=== PATIENT | female | born 1970 | race Caucasian/White ===

== ENCOUNTER 2021-03-28 16:32 | Emergency (ER) | payer OTHER | END 2021-03-28 17:25 | disposition home or self-care (01) | LOC: NAV ERS 16:32 | DX: S63.602A Unspecified sprain of left thumb, initial encounter (principal); S46.911A Strain of unspecified muscle, fascia and tendon at shoulder and upper arm level, right arm, initial encounter; S80.01XA Contusion of right knee, initial encounter; I10 Essential (primary) hypertension; W17.89XA Other fall from one level to another, initial encounter ==

== ENCOUNTER 2021-05-11 18:53 | Emergency (ER) | payer OTHER ==
[2021-05-11] MEDS ORDERED: methylPREDNISolone Sod Succ/PF 125 MG/2 ML VIAL ONE (19:34)
== END 2021-05-11 19:51 | disposition home or self-care (01) ==
LOC: NAV ERS 18:53
DX: L50.0 Allergic urticaria (principal); I10 Essential (primary) hypertension; E21.3 Hyperparathyroidism, unspecified
CPT/HCPCS: 96372; 99283; J2930

== ENCOUNTER 2021-08-18 11:52 | Outpatient (CLI) | payer OTHER | END 2021-08-18 11:53 | disposition home or self-care (01) | LOC: NAV LAB 11:52 | PROVIDERS: ATTEND Pathology Anatomic Pathology & Clinical Pathology | DX: Z00.00 Encounter for general adult medical examination without abnormal findings (principal) | CPT/HCPCS: 82150 ==

== ENCOUNTER 2021-09-07 12:32 | Emergency (ER) | payer OTHER ==
[~2021-09-07 12:32] MED LIST: Iopamidol 370 76% 100 ML VIAL ONE
[2021-09-07] MEDS ORDERED: Pantoprazole 40 MG VIAL ONE (13:01)
[2021-09-07] MEDS ORDERED: Ondansetron PF 4 MG/2 ML Vial ONE (13:01)
[2021-09-07 13:28] LABS: #Basophils 0.1 thou/uL (0.0-0.2); #Eosinphils 0.2 thou/uL (0.0-0.7); #Lymphocytes 2.5 thou/uL (1.20-3.40); #Monocytes 0.4 thou/uL (0.11-0.59); #Neutrophils 4.3 thou/uL (1.40-6.50); %Basophils 0.7 % (0.0-1.0); %Eosinophils 2.5 % (0.0-10.0); %Lymphocytes 33.1 % (21.0-51.0); %Monocytes 5.9 % (0.0-10.0); %Neutrophils 57.7 % (42.0-75.0); Hemoglobin 15.9 g/dL (12.0-16.0); Mean Corpuscular HGB CONC 33.1 g/dL (32.0-36.0); Mean Corpuscular Hemoglobin 30.2 pg (27.0-31.0); Mean Corpuscular Volume 91.4 fL (78.0-98.0); Mean Platelet Volume 6.8 fL (7.4-10.4); Platelet Count 294 thou/uL (130-400); RBC Distribution Width 11.8 % (11.5-14.5); Red Blood Cell (RBC) Count 5.24 mill/uL (4.20-5.40); White Blood Cell (WBC) Count 7.5 thou/uL (4.8-10.8)
[2021-09-07 13:30] LABS: Bilirubin Small (Negative); Blood, Urine Negative (Negative); Glucose, Urine (Dipstick) Negative (Negative); Ketone, Urine Negative (Negative); Leukocyte Trace (Negative); Nitrite Negative (Negative); Protein, Urine (Dipstick) 100 mg/dL (Neg-Trace); Urobilinogen 0.2 mg/dL (Less than 2)
[2021-09-07 13:32] LABS: Clarity SL HAZY (Clear); Specific Gravity, Urine 1.028 (1.002-1.036)
[2021-09-07] MEDS ORDERED: Morphine 4 MG/ML VIAL ONE (13:32)
[2021-09-07] MEDS ORDERED: Promethazine HCl 25 MG/ML VIAL ONE (13:32)
[2021-09-07] MEDS ORDERED: Sodium Chloride 0.9% 100 ML ONE (13:33)
[2021-09-07 13:42] LABS: Bacteria/HPF Rare-Few HPF (None Seen); Squamous Epithelial 0-3 HPF (0-3); Trichomonas/HPF 1+ HPF (None Seen); WBC/HPF 0-3 HPF (0-3)
[2021-09-07 13:43] LABS: ALT (SGPT) 34 U/L (8-55); AST (SGOT) 19 U/L (5-34); Albumin 4.1 g/dL (3.5-5.0); Alkaline Phosphatase 91 U/L (40-110); Anion Gap 13 mmol/L (10-20); BUN (Urea Nitrogen) 13 mg/dL (9.8-20.1); Bilirubin, Total 1.6 mg/dL (0.2-1.2); Calc. Creatinine Clearance 0 mL/min (70-130); Calcium 9.5 mg/dL (7.8-10.44); Calcium Oxalate Crystals 2+ HPF (None Seen); Carbon Dioxide 29 mmol/L (22-29); Chloride 104 mmol/L (98-107); Globulin 3.3 g/dL (2.4-3.5); Glucose 107 mg/dL (70-105); Lipase 15 U/L (8-78); Mucous/LPF 1+ LPF (<2+); Potassium 3.5 mmol/L (3.5-5.1); Protein, Total 7.4 g/dL (6.0-8.3); Sodium 142 mmol/L (136-145)
[2021-09-07] MEDS ORDERED: Sodium Chloride 0.9% 1,000 ML ONE (14:04)
== END 2021-09-07 15:03 | disposition home or self-care (01) ==
LOC: NAV ERS 12:32
DX: R11.2 Nausea with vomiting, unspecified (principal); R10.12 Left upper quadrant pain; I10 Essential (primary) hypertension; E21.3 Hyperparathyroidism, unspecified; J42 Unspecified chronic bronchitis; Z79.899 Other long term (current) drug therapy
CPT/HCPCS: 74177; 80053; 81003; 81015; 83690; 85025; 96374; 96375; C9113; J2270; J2405; J2550; J7050; Q9967

== ENCOUNTER 2022-02-14 06:37 | Emergency (ER) | payer OTHER | END 2022-02-14 07:27 | disposition home or self-care (01) | LOC: NAV ERS 06:37 | DX: J06.9 Acute upper respiratory infection, unspecified (principal); E21.3 Hyperparathyroidism, unspecified; I10 Essential (primary) hypertension; J42 Unspecified chronic bronchitis; Z79.899 Other long term (current) drug therapy | CPT/HCPCS: 99283 ==

== ENCOUNTER 2022-12-21 13:10 | Emergency (ER) | payer OTHER ==
[2022-12-21] MEDS ORDERED: Morphine 4 MG/ML VIAL ONE (13:55)
[2022-12-21] MEDS ORDERED: Cyclobenzaprine 10 MG TAB ONE (15:46)
== END 2022-12-21 16:02 | disposition home or self-care (01) ==
LOC: NAV ERS 13:10
DX: S83.411A Sprain of medial collateral ligament of right knee, initial encounter (principal); M17.11 Unilateral primary osteoarthritis, right knee; E21.3 Hyperparathyroidism, unspecified; X50.1XXA Overexertion from prolonged static or awkward postures, initial encounter
CPT/HCPCS: 96372; J2270

== ENCOUNTER 2023-08-28 11:35 | Emergency (ER) | payer OTHER ==
[2023-08-28 13:22] LABS: Anion Gap 13 mmol/L (10-20); BUN (Urea Nitrogen) 11 mg/dL (9.8-20.1); Calc. Creatinine Clearance 0 mL/min (70-130); Calcium 8.8 mg/dL (7.8-10.44); Carbon Dioxide 29 mmol/L (22-29); Chloride 104 mmol/L (98-107); Estimated GFR 94; Glucose 100 mg/dL (70-105); Potassium 2.9 mmol/L (3.5-5.1); Sodium 143 mmol/L (136-145)
[2023-08-28] MEDS ORDERED: Potassium Chloride 20 MEQ TAB ONE (13:51)
== END 2023-08-28 14:29 | disposition home or self-care (01) ==
LOC: NAV ERS 11:35
DX: J02.9 Acute pharyngitis, unspecified (principal); F41.9 Anxiety disorder, unspecified; R20.2 Paresthesia of skin; Z20.822 Contact with and (suspected) exposure to COVID-19
CPT/HCPCS: 80048; 87635; 87804; 99283

== ENCOUNTER 2024-01-31 19:03 | Emergency (ER) | payer OTHER ==
[2024-01-31 19:54] LABS: #Basophils 0.1 thou/uL (0.0-0.2); #Eosinphils 0.2 thou/uL (0.0-0.7); #Lymphocytes 3.8 thou/uL (1.20-3.40); #Monocytes 0.7 thou/uL (0.11-0.59); #Neutrophils 5.2 thou/uL (1.40-6.50); %Basophils 0.8 % (0.0-1.0); %Eosinophils 2.4 % (0.0-10.0); %Monocytes 6.7 % (0.0-10.0); %Neutrophils 52.2 % (42.0-75.0); Hematocrit 43.9 % (36.0-47.0); Hemoglobin 14.4 g/dL (12.0-16.0); Mean Corpuscular HGB CONC 32.8 g/dL (32.0-36.0); Mean Corpuscular Hemoglobin 29.5 pg (27.0-31.0); Mean Corpuscular Volume 89.9 fl (78.0-98.0); Mean Platelet Volume 6.6 fL (7.4-10.4); Platelet Count 275 10x3/uL (130-400); RBC Distribution Width 11.9 % (11.5-14.5); Red Blood Cell (RBC) Count 4.89 mill/uL (4.20-5.40)
[2024-01-31] MEDS ORDERED: Ketorolac Tromethamine 30 MG (1 mL) VIAL ONE (19:57)
[2024-01-31] MEDS ORDERED: Labetalol HCl 100 MG/20 ML VIAL ONE (19:58)
[2024-01-31 20:03] LABS: Bilirubin Negative (Negative); Blood, Urine Large (Negative); Clarity Hazy (Clear); Glucose, Urine (Dipstick) Negative (Negative); Ketone, Urine Negative (Negative); Leukocyte Moderate (Negative); Nitrite Negative (Negative); Protein, Urine (Dipstick) 30 mg/dL (Neg-Trace); Urobilinogen 0.2 mg/dL (Less than 2); pH, Urine 5.5 (5.0-9.0)
[2024-01-31 20:12] LABS: CAUTI Indications for Culture Dysuria,urgency,freq; Specific Gravity, Urine 1.027 (1.002-1.036)
[2024-01-31 20:13] LABS: Bacteria/HPF 1+ HPF (None Seen)
[2024-01-31 20:14] LABS: ALT (SGPT) 17 U/L (8-55); AST (SGOT) 13 U/L (5-34); Albumin 4.3 g/dL (3.5-5.0); Alkaline Phosphatase 89 U/L (40-110); Anion Gap 14 mmol/L (10-20); BUN (Urea Nitrogen) 27 mg/dL (9.8-20.1); Bilirubin, Total 1.1 mg/dL (0.2-1.2); Calc. Creatinine Clearance 0 mL/min (70-130); Calcium 9.7 mg/dL (7.8-10.44); Carbon Dioxide 28 mmol/L (22-29); Chloride 106 mmol/L (98-107); Estimated GFR 63; Globulin 2.9 g/dL (2.4-3.5); Glucose 91 mg/dL (70-105); Lipase 30 U/L (8-78); Potassium 3.7 mmol/L (3.5-5.1); Protein, Total 7.2 g/dL (6.0-8.3); Sodium 144 mmol/L (136-145); Urine Culture Reflex No No
== END 2024-01-31 21:17 | disposition home or self-care (01) ==
LOC: NAV ERS 19:03
DX: K63.5 Polyp of colon (principal); I10 Essential (primary) hypertension
CPT/HCPCS: 74177; 80053; 81001; 83690; 85025; 96374; 96375; J1885; Q9967

== ENCOUNTER 2024-02-29 15:21 | Outpatient (CLI) | payer OTHER ==
[2024-02-29 16:27] LABS: Bilirubin Negative (Negative); Blood, Urine Trace (Negative); Clarity Hazy (Clear); Glucose, Urine (Dipstick) Negative (Negative); Ketone, Urine Negative (Negative); Leukocyte Small (Negative); Nitrite Negative (Negative); Protein, Urine (Dipstick) 30 mg/dL (Neg-Trace); Specific Gravity, Urine 1.031 (1.002-1.036); Urobilinogen 0.2 mg/dL (Less than 2); pH, Urine 5.5 (5.0-9.0)
== END 2024-02-29 15:22 | disposition home or self-care (01) ==
LOC: NAV LAB 15:21
PROVIDERS: ATTEND Pathology Anatomic Pathology & Clinical Pathology
DX: Z00.00 Encounter for general adult medical examination without abnormal findings (principal)
CPT/HCPCS: 81003

== ENCOUNTER 2024-07-02 09:49 | Emergency (ER) | payer OTHER ==
[2024-07-02 10:51] LABS: #Basophils 0.1 thou/uL (0.0-0.2); #Eosinophils 0.1 thou/uL (0.0-0.7); #Lymphocytes 2.6 thou/uL (1.20-3.40); #Monocytes 0.5 thou/uL (0.11-0.59); #Neutrophils 4.1 thou/uL (1.40-6.50); %Basophils 0.8 % (0.0-1.0); %Lymphocytes 35.1 % (21.0-51.0); %Monocytes 7.2 % (0.0-10.0); Hemoglobin 14.2 g/dL (12.0-16.0); Mean Corpuscular HGB CONC 34.5 g/dL (32.0-36.0); Mean Corpuscular Hemoglobin 30.1 pg (27.0-31.0); Mean Corpuscular Volume 87.3 fl (78.0-98.0); Mean Platelet Volume 6.8 fL (7.4-10.4); Platelet Count 336 10x3/uL (130-400); RBC Distribution Width 11.1 % (11.5-14.5); White Blood Cell (WBC) Count 7.3 10x3/uL (4.8-10.8)
[2024-07-02 11:08] LABS: Troponin I 0.013 ng/mL (< 0.028)
[2024-07-02 11:11] LABS: ALT (SGPT) 28 U/L (8-55); AST (SGOT) 19 U/L (5-34); Albumin 3.9 g/dL (3.5-5.0); Alkaline Phosphatase 74 U/L (40-110); Anion Gap 17 mmol/L (10-20); BUN (Urea Nitrogen) 22 mg/dL (9.8-20.1); Bilirubin, Total 2.1 mg/dL (0.2-1.2); Calc. Creatinine Clearance 0 mL/min (70-130); Calcium 9.1 mg/dL (7.8-10.44); Carbon Dioxide 26 mmol/L (22-29); Chloride 103 mmol/L (98-107); Estimated GFR 57; Globulin 2.5 g/dL (2.4-3.5); Glucose 110 mg/dL (70-105); Magnesium 1.8 mg/dL (1.6-2.6); Potassium 2.9 mmol/L (3.5-5.1); Protein, Total 6.4 g/dL (6.0-8.3); Sodium 143 mmol/L (136-145)
[2024-07-02 11:23] LABS: SARS-CoV-2 E Target Negative; SARS-CoV-2 N2 Target Negative; SARS-CoV-2 NAA Rapid Test Not Detected (NotDetected); SARS-CoV-2 RdRP gene Negative
[2024-07-02] MEDS ORDERED: Potassium Bicarbonate/Cit Ac 25 MEQ TAB ONE (12:09)
[2024-07-02 12:38] LABS: Bilirubin Small (Negative); Blood, Urine Negative (Negative); Clarity Clear (Clear); Glucose, Urine (Dipstick) Negative (Negative); Ketone, Urine Trace mg/dL (Negative); Leukocyte Small (Negative); Nitrite Negative (Negative); Protein, Urine (Dipstick) 30 mg/dL (Neg-Trace); Urobilinogen 0.2 mg/dL (Less than 2)
[2024-07-02 12:54] LABS: Bacteria/HPF 3+ HPF (None Seen); CAUTI Indications for Culture Fever or rigors; Epithelial Cast 0-3 LPF (None Seen); RBC/HPF 0-3 HPF (0-3); Renal Epithelial 0-3 HPF (None Seen); Transitional Epithelial 0-3 HPF (None Seen)
[2024-07-02 12:55] LABS: Urine Culture Reflex No No
== END 2024-07-02 13:30 | disposition home or self-care (01) ==
LOC: NAV ERS 09:49
DX: N39.0 Urinary tract infection, site not specified (principal); E87.6 Hypokalemia; R53.1 Weakness; I10 Essential (primary) hypertension
CPT/HCPCS: 36415; 80053; 81001; 83735; 84484; 85025; 93005; 94760; 99285; U0002

== ENCOUNTER 2024-09-28 06:11 | Emergency (ER) | payer OTHER | END 2024-09-28 06:22 | disposition left against medical advice (07) | LOC: NAV ERS 06:11 | DX: Z53.21 Procedure and treatment not carried out due to patient leaving prior to being seen by health care provider (principal) ==

== ENCOUNTER 2024-10-23 03:28 | Emergency (ER) | payer OTHER ==
[2024-10-23] MEDS ORDERED: Sodium Chloride 0.9% 1,000 ML ONE ×3 (03:37→08:04)
[2024-10-23] MEDS ORDERED: Ondansetron PF 4 MG/2 ML Vial ONE (03:37)
[2024-10-23] MEDS ORDERED: Pantoprazole 40 MG VIAL ONE (04:03)
[2024-10-23] MEDS ORDERED: Morphine 2 MG/ML VIAL ONE (04:03)
[2024-10-23 04:05] LABS: Hematocrit 44.7 % (36.0-47.0); Hemoglobin 14.7 g/dL (12.0-16.0); Mean Corpuscular Hemoglobin 28.5 pg (27.0-31.0); Mean Corpuscular Volume 86.5 fl (78.0-98.0); Mean Platelet Volume 6.5 fL (7.4-10.4); Platelet Count 260 10x3/uL (130-400); RBC Distribution Width 11.1 % (11.5-14.5); Red Blood Cell (RBC) Count 5.17 mill/uL (4.20-5.40); White Blood Cell (WBC) Count 8.6 10x3/uL (4.8-10.8)
[2024-10-23 04:14] LABS: ALT (SGPT) 21 U/L (8-55); AST (SGOT) 14 U/L (5-34); Albumin 3.9 g/dL (3.5-5.0); Alkaline Phosphatase 83 U/L (40-110); Anion Gap 18 mmol/L (10-20); BUN (Urea Nitrogen) 20 mg/dL (9.8-20.1); Bilirubin, Total 1.9 mg/dL (0.2-1.2); Calc. Creatinine Clearance 0 mL/min (70-130); Carbon Dioxide 20 mmol/L (22-29); Chloride 106 mmol/L (98-107); Estimated GFR 84; Globulin 3.4 g/dL (2.4-3.5); Glucose 137 mg/dL (70-105); Lipase 16 U/L (8-78); Potassium 3.6 mmol/L (3.5-5.1); Protein, Total 7.3 g/dL (6.0-8.3); Sodium 140 mmol/L (136-145); Troponin I Less than 0.010 ng/mL (< 0.028)
[2024-10-23 04:21] LABS: Band 5 % (5-11); Eosinophils 1 % (0-10); Lymphocytes 9 % (21-51); MDiff Complete? YES; Monocytes 5 % (0-10); Neutrophil 80 % (42-75); Platelet Adequacy Comment Appears Adequate; Toxic Granulation SLIGHT; Vacuoles SLIGHT
[2024-10-23] MEDS ORDERED: Morphine 4 MG/ML VIAL ONE (04:45)
[2024-10-23] MEDS ORDERED: Dicyclomine 20 MG/2 ML VIAL ONE (04:58)
[2024-10-23 05:03] LABS: Bilirubin Small (Negative); Blood, Urine Trace (Negative); Glucose, Urine (Dipstick) Negative (Negative); Ketone, Urine Trace mg/dL (Negative); Leukocyte Large (Negative); Nitrite Negative (Negative); Protein, Urine (Dipstick) 30 mg/dL (Neg-Trace); Specific Gravity, Urine 1.015 (1.005-1.030); Urobilinogen 0.2 mg/dL (Less than 2); pH, Urine 6.5 (5.0-9.0)
[2024-10-23 05:10] LABS: CAUTI Indications for Culture Dysuria,urgency,freq; Clarity Slightly Cloudy (Clear)
[2024-10-23 05:11] LABS: Bacteria/HPF Rare-Few HPF (None Seen); Mucous/LPF 2+ LPF (<2+)
[2024-10-23 05:12] LABS: Urine Culture Reflex Yes Yes
[2024-10-23] MEDS ORDERED: Losartan 50 MG TAB ONE (08:04)
[2024-10-23] MEDS ORDERED: Promethazine HCl 25 MG/ML VIAL ONE (08:04)
== END 2024-10-23 11:44 | disposition home or self-care (01) ==
LOC: EEVIPCON 03:28 → NAV ERS 03:28
DX: K52.9 Noninfective gastroenteritis and colitis, unspecified (principal); I10 Essential (primary) hypertension; Z79.899 Other long term (current) drug therapy; E86.0 Dehydration
CPT/HCPCS: 71045; 71275; 74177; 80053; 81001; 83690; 83880; 84484; 85025; 85379; 87086; 93005; 96361; 96372; 96374; 96375; 96376; J2270; J2272; J2405; J2470; J2550; J7030

== ENCOUNTER 2025-01-11 07:56 | Emergency (ER) | payer OTHER ==
[2025-01-11] MEDS ORDERED: Losartan 50 MG TAB ONE (08:19)
[2025-01-11] MEDS ORDERED: Atenolol 25 MG TAB ONE (08:19)
[2025-01-11] MEDS ORDERED: Carvedilol 6.25 MG TAB ONE (08:19)
[2025-01-11] MEDS ORDERED: Pantoprazole 40 MG DR.TAB ONE (08:19)
[2025-01-11] MEDS ORDERED: Sucralfate 1 GM/10 ML UDCUP ONE (08:47)
== END 2025-01-11 09:06 | disposition home or self-care (01) ==
LOC: NAV ERS 07:56
DX: J18.9 Pneumonia, unspecified organism (principal); I10 Essential (primary) hypertension; Z79.899 Other long term (current) drug therapy
CPT/HCPCS: 71046; 87070; 87077; 87205

== ENCOUNTER 2025-07-30 09:20 | Outpatient (CLI) | payer OTHER ==
[2025-07-30 13:13] LABS: Glucose, Urine (Dipstick) Negative (Negative); Leukocyte Small (Negative); Protein, Urine (Dipstick) 100 mg/dL (Neg-Trace); Specific Gravity, Urine Greater/Equal 1.030 (1.005-1.030)
== END 2025-07-30 09:21 | disposition home or self-care (01) ==
LOC: NAV LAB 09:20
PROVIDERS: ATTEND Internal Medicine
DX: Z00.00 Encounter for general adult medical examination without abnormal findings (principal)
CPT/HCPCS: 81003